=== PATIENT | female | born 1975 | race Caucasian/White ===

== ENCOUNTER 2020-01-08 | Emergency (ER) | payer SELFPAY ==
[2020-01-08] MEDS ORDERED: CELEXA20 MG PO (15:59)
[2020-01-08] MEDS ORDERED: PROAIR HFA108 MCG/AC IN (16:00)
--- NOTE | 2020-01-11 09:41 | NUR ---
Notified patient of Covid results (Negative). Advised patient to follow up with PCP or return to ED with urgent issues. Advised patient to continue to practice Covid prevention. Patient verbalized understanding.
== END 2020-01-08 21:05 | disposition home or self-care (01) | DRG 866 ==
DX: B34.9 Viral infection, unspecified (principal); Z20.828 Contact with and (suspected) exposure to other viral communicable diseases